=== PATIENT | male | born 1975 ===

== ENCOUNTER → 2017-10-11 | Outpatient (CLI) | payer BC ==
--- NOTE | 2017-10-11 12:36 | DIAGNOSTIC IMAGING REPORT ---
(TESTICULAR) SCROTUM-CONT HISTORY: Pain. Edema. SCROTOL SWELLING COMPARISON: None. FINDINGS: Right testis: Maximum linear dimension 4.5 cm. Normal vascular flow. 2. Right epididymal cyst measuring 1.1 and 1.8 cm respectively. Left testis: Maximum dimension 4.5 cm with normal vascular flow. Very small bilateral complex hydroceles IMPRESSION: 1. Normal testicular ultrasound bilaterally. 2. Very small bilateral complex hydroceles. 3. 2 Right epididymal cyst. The above report was generated using voice recognition software. It may contain grammatical, syntax or spelling errors. Electronically signed by: Hayden Hartley M.D. 10/11/2017 12:34 PM Dictated Date/Time: 10/11/2017 12:33 PM
== END | disposition home or self-care (01) ==
LOC: C.ULTR 11:35
PROVIDERS: ATTEND Student in an Organized Health Care Education/Training Program
DX: N50.89 Other specified disorders of the male genital organs (principal); N50.3 Cyst of epididymis